=== PATIENT | female | born 1980 | race Caucasian/White ===

== ENCOUNTER → 2017-02-20 | Outpatient (CLI) | payer OTHER ==
[2015-04-21 11:00] VITALS: BP 130/84
[~2017-02-20] MED LIST: DILT180C2 PO; OMEP20CA9 PO
[2017-02-20 10:50] LABS: BASO # 0.1 x10^3/uL (0.0-0.2); BASO % 1 % (0-3); EOS % 1 % (0-3); HEMATOCRIT 46.2 % (36.0-47.0); HEMOGLOBIN 15.3 g/dL (12.0-15.5); LYMPH # 2.7 x10^3/uL (1.0-4.8); LYMPH % 28 % (24-48); MEAN CORPUSCULAR HEMOGLOBIN 31 pg (25-35); MEAN CORPUSCULAR HGB CONC 33 g/dL (31-37); MEAN CORPUSCULAR VOLUME 92 fL (79-100); MONO % 5 % (0-9); NEUT % 65 % (31-73); PLATELET COUNT 270 x10^3/uL (140-400); RED CELL DISTRIBUTION WIDTH 13.2 % (11.5-14.5); WHITE BLOOD COUNT 9.5 x10^3/uL (4.0-11.0)
[2017-02-20 11:10] LABS: ALBUMIN 4.1 g/dL (3.4-5.0); CALCIUM 9.4 mg/dL (8.5-10.1); CREATININE 0.7 mg/dL (0.6-1.0); GFR 94.2; POTASSIUM 4.2 mmol/L (3.5-5.1); TOTAL BILIRUBIN 0.5 mg/dL (0.2-1.0); TOTAL PROTEIN 8.4 g/dL (6.4-8.2)
[2017-02-20 11:11] LABS: CHOLESTEROL/HDL RATIO 5.3
[2017-02-20 11:19] LABS: FREE T4 0.99 ng/dL (0.76-1.46)
== END | disposition home or self-care (01) ==
LOC: LAB 10:26
PROVIDERS: ATTEND Nurse Practitioner Family
DX: Z13.228 Encounter for screening for other metabolic disorders (principal); Z79.899 Other long term (current) drug therapy
CPT/HCPCS: 36415; 80053; 80061; 84439; 84443; 85025

== ENCOUNTER → 2017-02-27 | Outpatient (CLI) | payer OTHER ==
[2015-04-21 11:00] VITALS: BP 130/84
--- NOTE | 2017-02-27 09:41 | KCIC ---
Ultrasound abdomen limited 02/27/2017 Clinical indication: Right upper quadrant abdominal pain. COMPARISON: None. FINDINGS: Visualized proximal pancreas body unremarkable. Gallbladder is normal in size and configuration without wall thickening, pericholecystic fluid or cholelithiasis. There is mild diffuse increased echogenicity throughout the liver compatible with steatosis. No discrete hepatic mass identified in the visualized portions. Right kidney is present measuring 10.2 cm in length without collecting system dilatation. No intra or extrahepatic biliary ductal dilatation. Common bile duct measures 5 mm. IMPRESSION: 1. Diffuse hepatic steatosis. 2. No cholelithiasis or sonographic evidence of acute cholecystitis. Electronically signed by: Gavino Lombardi MD (02/27/2017 9:38 AM) [id number]
== END | disposition home or self-care (01) ==
LOC: KCIC US 07:38
PROVIDERS: ATTEND Nurse Practitioner Family
DX: K76.0 Fatty (change of) liver, not elsewhere classified (principal)
CPT/HCPCS: 76705

== ENCOUNTER 2017-03-13 18:44 | Emergency (ER) | payer OTHER | END 2017-03-13 19:49 | disposition home or self-care (01) | LOC: ER 18:44 | DX: Z77.21 Contact with and (suspected) exposure to potentially hazardous body fluids (principal); E78.00 Pure hypercholesterolemia, unspecified; K21.9 Gastro-esophageal reflux disease without esophagitis; Z88.0 Allergy status to penicillin | CPT/HCPCS: 99281 ==

== ENCOUNTER 2018-01-11 10:15 | Emergency (ER) | payer OTHER ==
[2017-03-13 18:55] VITALS: BP 141/88
[~2018-01-11] VITALS: Ht 160 cm; Wt 86.2 kg
[2018-01-11] MEDS ORDERED: traMADol 50 MG TABLET PO ONE (11:00)
[2018-01-11] MEDS ORDERED: ORPHENADRINE CITRATE 60 MG/2 ML VIAL. IM ONE (11:00)
--- NOTE | 2018-01-11 11:36 | RAD ---
Two-view lumbar spine 01/11/2018 CLINICAL INDICATION: Popping with left-sided back pain. COMPARISON: None. FINDINGS: There are 6 nonrib-bearing lumbar-type vertebral bodies with the 1st considered L1. There is leftward curvature of the lower lumbar spine which may be positional. Vertebral body heights are maintained. Disc spaces are preserved. No significant listhesis. IMPRESSION: No radiographic evidence of acute lumbar spine abnormality. Electronically signed by: Gavino Lombardi MD (01/11/2018 11:33 AM) [id number]
[2018-01-11] MEDS ORDERED: ORPH100T PO (12:02)
[2018-01-11 12:03] LABS: BILIRUBIN,URINE NEGATIVE (NEG); CLARITY,URINE CLEAR; COLOR,URINE YELLOW; NITRITE,URINE NEGATIVE (NEG); PH,URINE 5.5; PROTEIN,URINE NEGATIVE (NEG-TRACE)
--- NOTE | 2018-01-11 12:03 | PHYS DOC ---
Past Medical History Past Medical History: GERD, High Cholesterol, Other Additional Past Medical Histor: vertigo, fatty liver disease Past Surgical History: No Surgical History Alcohol Use: None Drug Use: None Adult General Chief Complaint Chief Complaint: LOWER BACK PAIN OR INJURY [facility] HPI Patient is a 37 year old female who presents with significant sharp at 7:00 this morning and bent over and felt a pop in her left lower back. She states she didn't took 800 mg ibuprofen at 07 30 and now the pain has gotten to the point where her whole back is spasming down into her thighs. Patient states that it is extremely painful to bend or stand. She rates her pain a 6 out of 10. She is allergic to penicillin aspartame and states she takes no medications daily. Review of Systems Review of Systems Constitutional: Denies fever or chills [] Eyes: Denies change in visual acuity, redness, or eye pain [] HENT: Denies nasal congestion or sore throat [] Respiratory: Denies cough or shortness of breath [] Cardiovascular: No additional information not addressed in HPI [] GI: Denies abdominal pain, nausea, vomiting, bloody stools or diarrhea [] : Denies dysuria or hematuria [] Musculoskeletal: Low back pain or joint pain [] Integument: Denies rash or skin lesions [] Neurologic: Denies headache, focal weakness or sensory changes [] Endocrine: Denies polyuria or polydipsia [] All other systems were reviewed and found to be within normal limits, except as documented in this note. Current Medications Current Medications Current Medications Medications (Trade) Dose Ordered Sig/[facility] Start Time Stop Time Status Last Admin Dose Admin Orphenadrine Citrate (Norflex) 60 mg 1X ONCE 01/11/18 11:00 01/11/18 11:01 DC 01/11/18 11:03 60 MG Tramadol HCl (Ultram) 50 mg 1X ONCE 01/11/18 11:00 01/11/18 11:01 DC Allergies Allergies Allergies Coded Allergies Type Severity Reaction Last Updated Verified Penicillins Allergy Intermediate hives 04/20/15 Yes aspartame Allergy Mild hives 04/20/15 Yes Physical Exam Physical Exam Constitutional: Well developed, well nourished, no acute distress, non-toxic appearance. [] HENT: Normocephalic, atraumatic, bilateral external ears normal, oropharynx moist, no oral exudates, nose normal. [] Eyes: PERRLA, EOMI, conjunctiva normal, no discharge. [] Neck: Normal range of motion, no tenderness, supple, no stridor. [] Cardiovascular:Heart rate regular rhythm, no murmur [] Lungs & Thorax: Bilateral breath sounds clear to auscultation [] Abdomen: Bowel sounds normal, soft, no tenderness, no masses, no pulsatile masses. [] Skin: Warm, dry, no erythema, no rash. [] Back: Low back tenderness, no CVA tenderness. [] Extremities: No tenderness, no cyanosis, no clubbing, ROM intact, no edema. [] Neurologic: Alert and oriented X 3, normal motor function, normal sensory function, no focal deficits noted. [] Psychologic: Affect normal, judgement normal, mood normal. [] Current Patient Data Vital Signs Vital Signs Date Time Temp Pulse Resp B/P (MAP) Pulse Ox O2 Delivery O2 Flow Rate FiO2 01/11/18 10:26 97.9 91 18 147/89 (108) 97 Room Air 97.9 Lab Values Laboratory Tests Test 01/11/18 11:15 01/11/18 12:06 Urine Collection Type Unknown Urine Color Yellow Urine Clarity Clear Urine pH 5.5 Urine Specific [place] >=1.030 Urine Protein Negative mg/dL (NEG-TRACE) Urine Glucose (UA) Negative mg/dL (NEG) Urine Ketones (Stick) Negative mg/dL (NEG) Urine Blood Negative (NEG) Urine Nitrite Negative (NEG) Urine Bilirubin Negative (NEG) Urine Urobilinogen Dipstick 1.0 mg/dL (0.2 mg/dL) Urine Leukocyte Esterase Negative (NEG) Urine RBC Occ /HPF (0-2) Urine WBC Occ /HPF (0-4) Urine Squamous Epithelial Cells Many /LPF Urine Bacteria Many /HPF (0-FEW) Urine Mucus Marked /LPF POC Urine HCG, Qualitative Hcg negative (Negative) EKG EKG [] Radiology/Procedures Radiology/Procedures [] Impressions: [facility] [address] [place] [address] IMAGING REPORT Signed PATIENT: MARGARETTE PICKETT ACCOUNT: [id number] : 1980 LOCATION: ER AGE: 37 SEX: F EXAM STATUS: REG ER ORD. PHYSICIAN: DEWEY SINGH APRN REASON: PAIN/ BENT OVER AND FELT A POP PROCEDURE: LUMBAR SPINE 2-3V Two-view lumbar spine 01/11/2018 CLINICAL INDICATION: Popping with left-sided back pain. COMPARISON: None. FINDINGS: There are 6 nonrib-bearing lumbar-type vertebral bodies with the 1st considered L1. There is leftward curvature of the lower lumbar spine which may be positional. Vertebral body heights are maintained. Disc spaces are preserved. No significant listhesis. IMPRESSION: No radiographic evidence of acute lumbar spine abnormality. Electronically signed by: Fernie Lombardi MD (01/11/2018 11:33 AM) [id number] DICTATED and SIGNED BY: FERNIE LOMBARDI MD DATE: 01/11/18 1131 Course & Med Decision Making Course & Med Decision Making Patient is a 37 year old female who presents with significant sharp at 7:00 this morning and bent over and felt a pop in her left lower back. She states she didn't took 800 mg ibuprofen at 07 30 and now the pain has gotten to the point where her whole back is spasming down into her thighs. Patient states that it is extremely painful to bend or stand. She rates her pain a 6 out of 10. She is allergic to penicillin aspartame and states she takes no medications daily. Patient is given tramadol 50 mg by mouth and Norflex IM. Patient's lumbar x-ray shows no acute findings. She is sent home with a prescription for Norflex to take ibuprofen for pain. Patient should follow up with her primary care as needed. Dragon Disclaimer Luis Disclaimer This electronic medical record was generated, in whole or in part, using a voice recognition dictation system. Departure Departure Impression: Primary Impression: Back pain Disposition: 01 HOME, SELF-CARE Condition: STABLE Referrals: DERREK MCCOY APRN (PCP) Patient Instructions: Back Pain, Adult Additional Instructions: FOLLOW UP WITH PRIMARY CARE. TAKE MEDICATIONS PRESCRIBED. Scripts Orphenadrine Citrate (ORPHENADRINE CITRATE) 100 Mg Tablet.er 100 MG PO BID, #20 TAB.SR Prov: DEWEY SINGH APRN 01/11/18 Problem Qualifiers Primary Impression: Back pain Back pain location: low back pain Chronicity: acute Back pain laterality: bilateral Sciatica presence: without sciatica Qualified Codes: M54.5 - Low back pain DEWEY SINGH APRN Jan 11, 2018 12:02
[2018-01-11 12:15] LABS: BACTERIA,URINE MANY /HPF (0-FEW); SQUAMOUS EPITHELIAL CELL,UR MANY /LPF
[2018-01-11 12:17] LABS: RBC,URINE OCC /HPF (0-2); WBC,URINE OCC /HPF (0-4)
== END 2018-01-11 12:05 | disposition home or self-care (01) ==
LOC: ER 10:15
DX: M54.5 Low back pain (principal); K21.9 Gastro-esophageal reflux disease without esophagitis; E78.00 Pure hypercholesterolemia, unspecified; Z88.0 Allergy status to penicillin
CPT/HCPCS: 72100; 81001; 81025; 96372; 99285; J2360; 87086

== ENCOUNTER → 2018-08-05 | Outpatient (CLI) | payer OTHER ==
[2018-01-11 10:26] VITALS: BP 147/89
[~2018-08-05] MED LIST changes: +OMEP20CA10 PO; -OMEP20CA9 PO; +ORPH100T PO
[2018-08-05 07:08] LABS: ALBUMIN 3.7 g/dL (3.4-5.0); ALBUMIN/GLOBULIN RATIO 0.9 (1.0-1.7); CALCIUM 9.1 mg/dL (8.5-10.1); CREATININE 0.8 mg/dL (0.6-1.0); GFR 80.3; TOTAL BILIRUBIN 0.4 mg/dL (0.2-1.0); TOTAL PROTEIN 7.7 g/dL (6.4-8.2)
[2018-08-05 07:15] LABS: CHOLESTEROL/HDL RATIO 5.2
[2018-08-05 07:31] LABS: HEMATOCRIT 42.7 % (36.0-47.0); HEMOGLOBIN 14.4 g/dL (12.0-15.5); RED BLOOD COUNT 4.65 x10^6/uL (3.50-5.40); RED CELL DISTRIBUTION WIDTH 13.1 % (11.5-14.5); WHITE BLOOD COUNT 8.1 x10^3/uL (4.0-11.0)
== END | disposition home or self-care (01) ==
LOC: LAB 06:27
PROVIDERS: ATTEND Nurse Practitioner Family
DX: Z13.228 Encounter for screening for other metabolic disorders (principal); I47.1 Supraventricular tachycardia; E78.5 Hyperlipidemia, unspecified
CPT/HCPCS: 36415; 80053; 80061; 82607; 82746; 84439; 84443; 85027

== ENCOUNTER → 2020-01-11 | Outpatient (CLI) | payer OTHER ==
[2018-01-11 10:26] VITALS: BP 147/89
[~2020-01-11] MED LIST changes: -OMEP20CA10 PO; +OMEP20CA16 PO
--- NOTE | 2020-01-11 09:36 | KCIC ---
ABDOMEN LTD History: Reason: RUQ PAIN / Spl. Instructions: / History: Comparison: None. Technique: Transabdominal ultrasound images are obtained of the right upper quadrant. Findings: Visualized pancreas is unremarkable. Liver is increased in echogenicity. Right hepatic lobe measures 17.1 cm. Portal flow is hepatopedal. Gallbladder has an unremarkable appearance. Common bile duct measures 4.9 mm in diameter. The right kidney measures 11.5 x 5.7 x 4.1 cm. No hydronephrosis. Normal caliber IVC. IMPRESSION: 1. Increased hepatic echotexture, may indicate steatosis. Electronically signed by: Richard Brock DO (01/11/2020 9:33 AM) [id number]
--- NOTE | 2020-01-11 09:39 | KCIC ---
PELVIS COMPLETE History: Reason: / Spl. Instructions: / History: Pain. Comparison: None. Technique: Grayscale and color Doppler imaging of the pelvis was performed using transabdominal and transvaginal technique. Findings: The uterus measures 6.8 x 4.9 x 3.1 cm. Large nabothian cyst measures 2.5 x 2.6 x 1.67 m. Septated cyst within the cervix measures 1.2 x 1.4 x 1.0 cm.. The endometrial stripe measures 4 mm. Right ovary measures 2.2 x 1.5 x 1.6 cm. Dominant right ovarian follicle measures 1.1 x 1.1 x 1.3 cm with thick septation. Left ovary measures 1.5 x 1.8 x 0.8 cm cm. Normal Doppler flow to the ovaries. No adnexal masses are seen. IMPRESSION: 1. Large cystic lesions within the cervix, likely nabothian cysts. 2. Dominant right ovarian follicle with thick septation. Electronically signed by: Richard Brock DO (01/11/2020 9:36 AM) [id number]
== END ==
LOC: KCIC US 07:48
PROVIDERS: ATTEND Nurse Practitioner Family
DX: N83.02 Follicular cyst of left ovary (principal); N88.8 Other specified noninflammatory disorders of cervix uteri
CPT/HCPCS: 76705; 76856

== ENCOUNTER → 2020-01-11 | Outpatient (CLI) | payer OTHER ==
[2018-01-11 10:26] VITALS: BP 147/89
[2020-01-11 09:40] LABS: HEMOGLOBIN 14.3 g/dL (12.0-15.5); RED BLOOD COUNT 4.61 x10^6/uL (3.50-5.40)
[2020-01-11 10:06] LABS: ALBUMIN 3.7 g/dL (3.4-5.0); ALBUMIN/GLOBULIN RATIO 0.9 (1.0-1.7); CALCIUM 9.2 mg/dL (8.5-10.1); CREATININE 0.7 mg/dL (0.6-1.0); GFR 92.7; POTASSIUM 3.9 mmol/L (3.5-5.1); TOTAL BILIRUBIN 0.5 mg/dL (0.2-1.0); TOTAL PROTEIN 7.6 g/dL (6.4-8.2)
[2020-01-11 10:16] LABS: FREE T4 1.14 ng/dL (0.76-1.46); THYROID STIM HORMONE (TSH) 1.863 uIU/mL (0.358-3.74)
== END ==
LOC: LAB 09:00
PROVIDERS: ATTEND Nurse Practitioner Family
DX: E55.9 Vitamin D deficiency, unspecified (principal); E78.5 Hyperlipidemia, unspecified; I47.1 Supraventricular tachycardia
CPT/HCPCS: 36415; 80053; 80061; 82306; 84439; 84443; 85027

== ENCOUNTER → 2020-01-19 | Outpatient (CLI) | payer OTHER ==
[2018-01-11 10:26] VITALS: BP 147/89
--- NOTE | 2020-01-20 12:27 | RAD ---
DATE: 01/19/2020 10:05 AM EXAM: MAMMO MICAH SCREENING BILATERAL HISTORY: Screening COMPARISON: None. This is a baseline. Bilateral CC and MLO views of the breasts were performed. Bilateral breast tomosynthesis was performed in CC and MLO projections. This study was interpreted with the benefit of Computerized Aided Detection (CAD). FINDINGS: Breast Density: SCATTERED The breast parenchyma shows scattered fibroglandular densities. Breast parenchyma level B No suspicious masses, microcalcifications or architectural distortion is present to suggest malignancy in either breast. The visualized axillae are unremarkable. IMPRESSION: No mammographic evidence of malignancy. BI-RADS CATEGORY: 1 NEGATIVE RECOMMENDED FOLLOW-UP: 12M 12 MONTH FOLLOW-UP Annual screening mammography is recommended, unless clinically indicated sooner based on symptoms or change in physical exam. PQRS compliance statement: Patient information was entered into a reminder system with a target due date for the next mammogram. Mammography is a sensitive method for finding small breast cancers, but it does not detect them all and is not a substitute for careful clinical examination. A negative mammogram does not negate a clinically suspicious finding and should not result in delay in biopsying a clinically suspicious abnormality. "Our facility is accredited by the [employer] Mammography Program."
== END ==
LOC: MAMMO 10:05
PROVIDERS: ATTEND Nurse Practitioner Family
DX: Z12.31 Encounter for screening mammogram for malignant neoplasm of breast (principal)
CPT/HCPCS: 77063; 77067

== ENCOUNTER → 2020-10-02 | Outpatient (CLI) | payer OTHER ==
[2018-01-11 10:26] VITALS: BP 147/89
== END ==
LOC: LAB 06:43
PROVIDERS: ATTEND Internal Medicine Pulmonary Disease
DX: U07.1 COVID-19 (principal)
CPT/HCPCS: 87426